=== PATIENT | male | born 1945 | race Caucasian/White ===

== ENCOUNTER 2019-03-17 18:02 | Emergency (ER) | payer MEDICARE, OTHER ==
[2019-03-17 18:11] VITALS: BP 146/77
--- NOTE | 2019-03-17 18:20 | ED Physician Documentation ---
PD HPI DYSPNEA - Stated complaint Stated Complaint: SOA,CONGESTION - Chief complaint Chief Complaint: Resp - History obtained from History obtained from: Patient - History of Present Illness Timing - onset: Other (73-year-old gentleman with history of COPD presents with increased productive cough and nasal congestion and shortness of breath over the last 3 to 4 days without fevers. Cough is productive of a tannish sputum. Denies pedal edema, calf pain, or chest pain. No recent travel.) Review of Systems Ten Systems: 10 systems reviewed and negative Constitutional: reports: Reviewed and negative Throat: reports: Reviewed and negative Cardiac: reports: Reviewed and negative PD PAST MEDICAL HISTORY - Past Medical History Respiratory: COPD - Present Medications Home Medications: Ambulatory Orders Medication Instructions Recorded Confirmed RX: Doxycycline Hyclate 100 mg PO BID #20 capsule 03/17/19 RX: predniSONE [Deltasone] 20 mg PO [id number] #21 tab 03/17/19 - Allergies Allergies/Adverse Reactions: Allergies Allergy/AdvReac Type Severity Reaction Status Date / Time niacin Allergy Rash Verified 03/17/19 18:07 - Living Situation Living Situation: reports: With spouse/s.o. - Social History Does the pt smoke?: Yes Smoking Status: Current every day smoker - Family History Family history: reports: Non contributory PD ED PE NORMAL - Vitals Vital signs reviewed: Yes - General General: Alert and oriented X 3, No acute distress - HEENT HEENT: PERRL, EOMI - Neck Neck: Supple, no meningeal sign, No bony TTP - Cardiac Cardiac: RRR, No murmur - Respiratory Respiratory: No respiratory distress, Other (Wheezing rhonchorous throughout, nonlabored) - Abdomen Abdomen: Non tender - Extremities Extremities: No edema, No calf tenderness / cord - Neuro Neuro: Alert and oriented X 3, Normal speech - Psych Psych: Normal mood, Normal affect Results - Vitals Vitals: Vital Signs - 24 hr 03/17/19 03/17/19 18:08 19:02 Temperature 36.7 C Heart Rate 99 92 Respiratory 16 18 Rate Blood Pressure 146/77 H O2 Saturation 91 L Oxygen O2 Source Room air - Rads (name of study) 2v chest Radiology: EMP read contemporaneously PD MEDICAL DECISION MAKING - ED course ED course: 73-year-old gentleman with known COPD presents with apparent exacerbation of same, no clinical evidence of cardiac or other acute issue. He was administered a DuoNeb here as well as oral steroids and doxycycline. His chest x-ray is clear of acute abnormality. Departure - Departure Disposition: 01 Home, Self Care Clinical Impression: COPD exacerbation Condition: Good Instructions: COPD Dc Prescriptions: RX: Doxycycline Hyclate 100 mg PO BID #20 capsule RX: predniSONE [Deltasone] 20 mg PO [id number] #21 tab Comments: Call your doctor to arrange a follow-up appointment, make the next available appointment. In the interim, return anytime if worse or if new symptoms develop. Discharge Date/Time: 03/17/19 19:17
--- NOTE | 2019-03-17 18:51 | XRAY Report ---
Reason: cough Procedure Date: 03/17/2019 Accession Number: [id number] / [id number] Procedure: XR - Chest 2 View X-Ray CPT Code: 19682 FULL RESULT: EXAM: CHEST RADIOGRAPHY EXAM DATE: 03/17/2019 06:32 PM. CLINICAL HISTORY: Cough. Shortness of breath. COMPARISON: None. TECHNIQUE: 2 views. FINDINGS: Lungs/Pleura: Hyperinflation. Scarring in the both lung bases. No consolidation. No pneumothorax. No pleural effusions. Mediastinum: Heart size is normal. Aorta is mildly tortuous. Other: Degenerative changes of the thoracic spine and both shoulders. IMPRESSION: 1. Hyperinflation. 2. Bibasilar scarring. RADIA
[2019-03-17] MEDS ORDERED: predniSONE 20 MG TABLET PO STA (18:54)
[2019-03-17] MEDS ORDERED: IPRATROPIUM/ALBUTEROL 3 ML NEB INH STA (18:54)
[2019-03-17] MEDS ORDERED: DOXYCYCLINE 100 MG TABLET PO STA (18:54)
== END 2019-03-17 19:17 | disposition home or self-care (01) ==
LOC: ED 18:02
DX: J44.1 Chronic obstructive pulmonary disease with (acute) exacerbation (principal); F17.200 Nicotine dependence, unspecified, uncomplicated
CPT/HCPCS: 71046; 94640; 94664; 99283; 99284; A9270; J7512

== ENCOUNTER 2021-09-30 08:17 | Outpatient (CLI) | payer MEDICARE | END 2021-09-30 08:18 | disposition short-term general hospital (02) | LOC: EMS 08:17 | DX: Z04.3 Encounter for examination and observation following other accident (principal); M25.511 Pain in right shoulder | CPT/HCPCS: A0425; A0429 ==